=== PATIENT | female | born 1960 | race Caucasian/White ===

== ENCOUNTER → 2024-12-05 | Outpatient (CLI) | payer MEDICAID ==
--- NOTE | 2024-12-05 22:08 | RADIOLOGY REPORT ---
EXAM: MR MRI HEAD; DATE: 12/05/2024 03:30 PM HISTORY: OTH SYMPTOMS AND SIGNS W COGNITIVE FUNCTIONS AND AWARENESS COMPARISON: None TECHNIQUE: MRI was performed utilizing multiple appropriate imaging planes and pulse sequences. FINDINGS: SUPRATENTORIAL REGION: No evidence for acute ischemia or intracranial hemorrhage. POSTERIOR FOSSA: Unremarkable. BRAINSTEM: Unremarkable. SELLAR/SUPRASELLAR REGION: Unremarkable. VENTRICLES, CISTERNS, SULCI: Age-appropriate. ORBITS: Unremarkable. PARANASAL SINUSES: Unremarkable. MASTOID AIR CELLS: Small bilateral mastoid effusions. VASCULATURE: Unremarkable. BONES/ SOFT TISSUES: Unremarkable. OTHER: None. IMPRESSION: 1. No acute intracranial process identified. 2. Scattered nonspecific FLAIR hyperintense foci in the bilateral cerebral white matter without restr icted diffusion . The differential diagnosis includes hypoxic/ischemic etiologies (atherosclerotic, hypertension, migraine), inflammatory/infectious etiologies (demyelination disorders) or other. Gilberto mmend clinical correlation and further evaluation as clinically warranted.
== END | disposition home or self-care (01) ==
LOC: MRI02 15:15
PROVIDERS: ATTEND Student in an Organized Health Care Education/Training Program
DX: H70.93 Unspecified mastoiditis, bilateral (principal); R41.89 Other symptoms and signs involving cognitive functions and awareness
CPT/HCPCS: 70551